=== PATIENT | female | born 1930 | race Caucasian/White ===

== ENCOUNTER → 2017-12-27 | Emergency (ER) | payer OTHER ==
[~2017-12-27] VITALS: Ht 165.1 cm; Wt 43.1 kg
[~2017-12-27] MED LIST: BACTROBAN OINT22 GM TP; CARVEDILOL3.125 MG; CELEBREX100 MG PO; CIPRO500 MG PO; FERROUS SU325 ( 65 ); NAMENDA10 MG; PRILOSEC20 MG; SERTRALINE HCL50 MG; ULTRACET PO; VASOTEC2.5 MG
== END | disposition home or self-care (01) ==
LOC: ER 16:56
DX: S30.0XXA Contusion of lower back and pelvis, initial encounter (principal); W18.09XA Striking against other object with subsequent fall, initial encounter; Y93.89 Activity, other specified; Y92.198 Other place in other specified residential institution as the place of occurrence of the external cause; Y99.8 Other external cause status

== ENCOUNTER 2018-01-27 20:29 | Inpatient (IN) | payer OTHER ==
[~2018-01-27] VITALS: Ht 154.9 cm; Wt 45.4 kg
== END 2018-01-29 11:12 | disposition expired | DRG 872 ==
LOC: ER 20:29 → MEDI 01-28 08:00 → MEDJ 01-28 08:00 → SEC-K 01-28 08:00 → MEDJ 01-28 11:16 → MEDI 01-28 17:29
PROC: BT43ZZZ Ultrasonography of Bilateral Kidneys (ICD-10-PCS; 2018-01-28)
PROC: 4A033R1 Measurement of Arterial Saturation, Peripheral, Percutaneous Approach (ICD-10-PCS; principal; 2018-01-29)
PROC: 3E0F7GC Introduction of Other Therapeutic Substance into Respiratory Tract, Via Natural or Artificial Opening (ICD-10-PCS; 2018-01-29)
PROC: 4A12X4Z Monitoring of Cardiac Electrical Activity, External Approach (ICD-10-PCS; 2018-01-29)
DX: A41.9 Sepsis, unspecified organism (principal); N39.0 Urinary tract infection, site not specified; N17.8 Other acute kidney failure; E87.0 Hyperosmolality and hypernatremia; R65.20 Severe sepsis without septic shock; E86.0 Dehydration; E87.5 Hyperkalemia; K52.89 Other specified noninfective gastroenteritis and colitis; Z74.01 Bed confinement status; I10 Essential (primary) hypertension; K21.9 Gastro-esophageal reflux disease without esophagitis; G30.1 Alzheimer's disease with late onset; F02.80 Dementia in other diseases classified elsewhere, unspecified severity, without behavioral disturbance, psychotic disturbance, mood disturbance, and anxiety; Z78.1 Physical restraint status; B96.29 Other Escherichia coli [E. coli] as the cause of diseases classified elsewhere; Z66 Do not resuscitate; M81.0 Age-related osteoporosis without current pathological fracture